=== PATIENT | male | born 1995 | race Caucasian/White ===

== ENCOUNTER 2017-07-14 18:57 | Inpatient (IN) | payer MEDICAID, OTHER ==
[~2017-07-14] VITALS: Ht 182.9 cm; Wt 109.1 kg
[2017-07-14 19:58] LABS: BASOPHILS % (AUTO) 0.3 % (0.0-2.0); EOSINOPHILS % (AUTO) 0.6 % (1.0-6.0); HEMATOCRIT 48.8 % (41-53); HEMOGLOBIN 16.7 g/dL (13.5-17.5); LYMPHOCYTES # (AUTO) 3.1 K/uL (1.0-4.8); LYMPHOCYTES % (AUTO) 32.2 % (22.0-44.0); MEAN CORPUSCULAR HEMOGLOBIN 31.4 pg (26.0-34.0); MEAN CORPUSCULAR HGB CONC 34.2 G/dL (31.0-37.0); MEAN CORPUSCULAR VOLUME 92 fL (80-100); MONOCYTES # (AUTO) 0.7 K/uL (0.1-1.0); MONOCYTES % (AUTO) 7.6 % (2.0-9.0); NEUTROPHILS # (AUTO) 5.7 K/uL (1.8-7.7); NEUTROPHILS % (AUTO) 59.3 % (40.0-70.0); PLATELET COUNT (AUTO) 245 K/uL (150-450); RED BLOOD CELL COUNT(AUTO) 5.31 MIL/uL (4.50-5.90); RED CELL DISTRIBUTION WIDTH 12.6 % (11.5-14.5); WHITE BLOOD COUNT (AUTO) 9.6 K/uL (4.5-11.0)
[2017-07-14 20:02] LABS: ANION GAP 8 mmol/L (8-16); CALCIUM, TOTAL 9.4 mg/dL (8.8-10.5); CARBON DIOXIDE 29 mmol/L (22-29); CHLORIDE 104 mmol/L (98-107); CREATININE 1.28 mg/dL (0.60-1.30); GLOMERULAR FILTR. RATE CALC > 60 mL/min (>60); POTASSIUM 3.7 mmol/L (3.5-5.1); SODIUM SERUM 141 mmol/L (136-145); UREA NITROGEN, BLOOD 13 mg/dL (7-18)
[2017-07-14 20:11] LABS: ALANINE AMINOTRANSFERASE 28 U/L (12-78); ALBUMIN 4.4 g/dL (3.4-5.0); ASPARTATE AMINOTRANSFERASE 20 U/L (15-37); BILIRUBIN,TOTAL 0.9 mg/dL (0.1-1.0); TOTAL PROTEIN, SERUM 8.1 g/dL (6.4-8.2)
[2017-07-14] MEDS ORDERED: HALOPERIDOL 5 MG TABLET PO ONE (20:45)
[2017-07-14] MEDS ORDERED: DiphenhydrAMINE HCL 25 MG CAPSULE PO ONE (20:45)
[2017-07-14] MEDS ORDERED: LORazepam 2 MG TABLET PO ONE (20:45)
[2017-07-14] MEDS ORDERED: HALOPERIDOL 5 MG TABLET PO PRN (22:00)
[2017-07-14] MEDS ORDERED: ZOLPIDEM TARTRATE 10 MG TABLET PO PRN (22:00)
[2017-07-14 22:16] LABS: CHOL/HDL RATIO 3.2 (4.2-7.3)
[2017-07-15 00:50] VITALS: BP 124/58
[2017-07-15] MEDS: LORazepam 2 MG TABLET PO PRN ×2 (11:40→20:44)
[2017-07-15] MEDS: RisperiDONE 1 MG TABLET PO SCH ×2 (12:38→20:43)
[2017-07-15 13:40] VITALS: BP 114/63
[2017-07-15 20:01] VITALS: BP 114/67
[2017-07-16] MEDS: RisperiDONE 1 MG TABLET PO SCH ×2 (08:04→20:03)
[2017-07-16 08:20] VITALS: BP 125/70
[2017-07-16] MEDS: LORazepam 2 MG TABLET PO PRN (11:17)
[2017-07-17] MEDS: RisperiDONE 1 MG TABLET PO SCH ×2 (08:10→20:03)
[2017-07-17 08:35] VITALS: BP 122/79
[2017-07-17 21:52] VITALS: BP 142/94
[2017-07-18 08:40] VITALS: BP 128/81
[2017-07-18] MEDS: RisperiDONE 1 MG TABLET PO SCH (09:28)
[2017-07-18] MEDS ORDERED: RISP1 PO (10:11)
== END 2017-07-18 11:15 | disposition home or self-care (01) | DRG 750 ==
LOC: EMS 18:59 → AHU 23:40
DX: F20.0 Paranoid schizophrenia (principal); F12.90 Cannabis use, unspecified, uncomplicated; Z88.8 Allergy status to other drugs, medicaments and biological substances; Z91.013 Allergy to seafood
CPT/HCPCS: 99285; G0480